=== PATIENT | female | born 1985 | race Caucasian/White ===

== ENCOUNTER 2017-03-24 22:55 | Emergency (ER) | payer MEDICAID ==
[~2017-03-24] VITALS: Ht 172.7 cm; Wt 72.6 kg
--- NOTE | 2017-03-24 23:15 | NUR ---
TO BED 12 A 31 YO FEMALE BIBRA AND EMS STATE PT HAD TO MANY DRINKS AND IS HAVING ANXIETY PT WAS FOUND LYING DOWN ON THE COUCH IN THE FAMILY HOME. UPON ARRIVAL TO ER, PATIENT IS SLEEPING. VSS. BREATHING EVEN AND UNLABORED. MAINTAINED PATENT AIRRWAY. SAFETY MEASURES OBSERVED. AWAITING FOR ER MD CASTANEDA.
[2017-03-24] MEDS ORDERED: IV SET PRIMARY 1 EA INFUS.SET MC ONE (23:20)
[2017-03-24] MEDS ORDERED: IV NS 0.9% 1,000 ML ONE (23:20)
[2017-03-24] MEDS ORDERED: IV NS 0.9% 1,000 ML BAG IV ONE (23:30)
--- NOTE | 2017-03-25 01:00 | NUR ---
IV removed. Catheter intact and site benign. Pressure and 4x4 applied to site. No bleeding noted. Patient discharged to home in stable condition. Written and verbal after care instructions given. Patient verbalizes understanding of instruction. Patient is ambulatory with steady gait, accompanied by family. No further complaints.
[2017-03-25 01:01] VITALS: BP 118/68
== END 2017-03-25 01:01 | disposition home or self-care (01) ==
LOC: ER 23:00
DX: F10.129 Alcohol abuse with intoxication, unspecified (principal); R79.89 Other specified abnormal findings of blood chemistry
CPT/HCPCS: 82962-TC; A4606; J7030; Z7610